=== PATIENT | male | born 1990 | race Caucasian/White ===

== ENCOUNTER 2016-10-27 13:15 | Emergency (ER) | payer MEDICAID, SELFPAY ==
[~2016-10-27] VITALS: Ht 180.3 cm; Wt 101.6 kg
[2016-10-27] MEDS ORDERED: LIDOCAINE 2% W/EPIN INJ 20ML **PRES FREE As Ordered ONE (13:42)
[2016-10-27] MEDS ORDERED: dexameTHASONE 20 MG/5 ML VIAL (J1100) IV ONE (14:45)
--- NOTE | 2016-10-27 15:19 | HPEPDOC ---
Medical History and Physical Date of Admission History and Physical PRIMARY CARE PROVIDER: ATTENDING: [place] CHIEF COMPLAINT: [SUSPECT PERITONSILLAR ABSCESS] HISTORY OF PRESENT ILLNESS: 26 year old male transported form outside ED with a suspected left peritonsillar abscess. The patient arrived by ambulance stable with no airway diffculties. He reported a sorethroat over the last week and was seen twice at a nearby ED. He reported that he was treated for sorethroat and a swollen right tonsil and prescribed amoxil. He improved, but then his left tonsil became swollen and painful later in the week and he returned to the ED, but was told his infection was probably viral and he was released. He then presented to the ED this morning with increased left tonsil pain and difficulty opening his mouth. I spoke with the PA at the ED who reported suspected left peritonsillar abscess and the patient was transported to [facility] ED for care. He was given one dose of unasyn at the outside ED. He was also imaged with non- contrast CT. The patient does report that he has been able to swallow fluids at home. He has no previous h/o peritonsillar abscess and has strep throat a few times as a child. PAST MEDICAL HISTORY: 1. [None]. 2. . 3. . 4. . PAST SURGICAL HISTORY: 1. [right knee surgery]. 2. . 3. . 4. . SOCIAL HISTORY: Marital status: . Resides in: Children: Employment: Tobacco use:[1ppd for 14 years] ETOH: [occasional] Illicit drug use: Tattoos done unprofessionally: . IV drug use: [none] Other relevant social factors: FAMILY HISTORY: Father: Mother: Siblings: Children: Hereditary Diseases: Unexpected deaths due to medical reasons: ALLERGIES: Please see below. REVIEW OF SYSTEMS: CONSTITUTIONAL: . HEENT: [see hpi]. CARDIOVASCULAR: [neg]. RESPIRATORY: [neg]. GASTROINTESTINAL: [neg]. GENITOURINARY: [neg]. SKIN: [neg]. MUSCULOSKELETAL: [neg]. NEUROLOGICAL: [neg]. PSYCHIATRIC: [neg]. ENDOCRINE: [neg]. HEMATOLOGIC/LYMPHATIC: [neg]. HOME MEDICATIONS: Please see below. PHYSICAL EXAMINATION: VITAL SIGNS: Temperature [9905], pulse [95], respiratory rate , blood pressure [ 126/89], pulse oximetry [98]% on room air. GENERAL APPEARANCE: [sitting in bed upright. appears uncomfortable. no stridor.]. HEENT: [+ tismus. the left tonsill is swollen and bulging medially with slight uvular deviation. The adjacent pillar is erythemetous and tender and firm. the neck is palpably soft with a tender level II lymph node.]. CARDIOVASCULAR: . LUNGS: . ABDOMEN: . MUSCULOSKELETAL: . EXTREMITIES: . NEUROLOGICAL: [cranial nerves grossly intact]. PSYCHIATRIC: . LABORATORY DATA: white count of 27.3 at outside ED with 83% neutrophils IMAGING: [outside non-con CT neck was viewed. No fluid collection was reported , but there is evidence of slight hypodensity near the superior pole of the tonsil which may represent either pus or phlegmon.] MICROBIOLOGY: Please see below. ASSESSMENT: [SUSPECTED LEFT PERITONSILLAR ABSCESS.]. . PLAN: [1. Patient was consented for left side incision and drainage of suspected peritonsillar abscess. Informed written consent was obtained from the patient. Procedure: The oral cavity was sprayed with cetacaine. 7ml of 2%lidocaine with dilute epinephrine was injected along anterior tonsillar pillar. During the course of injection a small amount of pus was released from an injection site. The peritonsillar space was then probed and aspirated with an 18gauge spinal needle. A questionable drop of pus was obtained. The peritonsillar space was then opened throught the pillar with 15 blade and the space probed with tonsil dissector. No further pus was obtained. A culture swab was probed in the peritonsillar space. This completed the procedure. The patient tolerated the procedure well.]. 2. Patient was given one dose of decadron 10mg IV for one dose. 3. Clindamycin 300mg po q6h for 14 days. 4. Percocet 5/325 1 tab q6h as needed for pain. 5. He was instructed to follow up at the ENT clinic first thing 08:00 on 29 October. Vital Signs Vital Signs Date Time Temp Pulse Resp B/P (MAP) Pulse Ox O2 Delivery O2 Flow Rate FiO2 10/27/16 13:35 99.5 97 18 126/89 (101) 10/27/16 13:25 98 Room Air Home Medications Scheduled Clindamycin Hcl (Clindamycin HCl) 150 Mg Cap, 450 MG PO Q6H Scheduled PRN Oxycodone/Acetaminophen (Percocet 5-325 mg) 1 Tab Tab, 1 TAB PO Q6H PRN for PAIN Allergies Coded Allergies: Morphine (Verified Allergy, Intermediate, body turns red all over , ) MYNOR WEINBERG MD Oct 27, 2016 15:19
[2016-10-27] MEDS ORDERED: CLIN1CAP5 PO (15:26)
[2016-10-27] MEDS ORDERED: PERC5TAB6 PO (15:27)
[2016-10-27] MEDS ORDERED: KETOROLAC 30 MG/ML VIAL (J1885) IV ONE (15:45)
[2016-10-27 16:05] VITALS: BP 132/89
[2016-10-27] MEDS ORDERED: METAL LOCK LOOP XX ONE (16:08)
[2016-10-27] MEDS ORDERED: CETACAINE SPRAY 20GM (FLOOR STOCK) As Ordered ONE (16:08)
== END 2016-10-27 16:17 | disposition home or self-care (01) ==
LOC: EDBD 13:15 → M ED 15:26
DX: J02.9 Acute pharyngitis, unspecified (principal); F17.210 Nicotine dependence, cigarettes, uncomplicated; Z88.5 Allergy status to narcotic agent
CPT/HCPCS: 87070; 87075; 87076; 87077; 87184; 99282; J1100; J1885

== ENCOUNTER 2018-08-22 02:09 | Inpatient (IN) | payer SELFPAY ==
[~2018-08-22] VITALS: Ht 180.3 cm; Wt 108.4 kg
[~2018-08-22 02:09] MED LIST: CLIN150C14 PO; PERC5TAB12 PO
[2018-08-22 03:30] VITALS: BP 138/77
[2018-08-22] MEDS ORDERED: NS 1,000 ML IV SCH (04:05)
[2018-08-22] MEDS ORDERED: ACETAMINOPHEN TAB 650MG DOSE (2X325MG) PO PRN (04:15)
[2018-08-22] MEDS: dexameTHASONE 4 MG/ML 1ML VIAL (J1100) IV SCH ×3 (05:05→18:06)
[2018-08-22 05:26] LABS: BASO % 0.2 % (0.0-1.0); EOS # 0.1 10^3/uL (0.0-0.50); EOS % 0.6 % (0.0-3.0); HEMATOCRIT 44.3 % (42.0-52.0); HEMOGLOBIN 15.3 g/dl (13.5-17.5); LYMPH # 1.8 10^3/uL (1.5-4.5); LYMPH % 14.7 % (24.0-44.0); MEAN CORPUSCULAR HEMOGLOBIN 31.6 pg (27.0-33.0); MEAN CORPUSCULAR HGB CONC 34.5 g/dl (32.0-36.5); MEAN CORPUSCULAR VOLUME 91.5 fl (80.0-96.0); MONO # 0.2 10^3/uL (0.0-0.8); MONO % 1.7 % (0.0-5.0); NEUTROPHILS # 10.2 10^3/uL (1.8-7.7); NEUTROPHILS % 82.4 % (36.0-66.0); PLATELET COUNT, AUTOMATED 253 10^3/uL (150-450); RED BLOOD COUNT 4.84 10^6/uL (4.30-6.10); WHITE BLOOD COUNT 12.4 10^3/uL (4.0-10.0)
[2018-08-22 05:43] LABS: BLOOD UREA NITROGEN 10 MG/DL (7-18); CALCIUM LEVEL 8.7 MG/DL (8.5-10.1); CARBON DIOXIDE LEVEL 25 MEQ/L (21-32); CHLORIDE LEVEL 105 MEQ/L (98-107); CREATININE FOR GFR 1.08 MG/DL (0.70-1.30); GLOMERULAR FILTRATION RATE > 60.0 (>60); GLUCOSE, FASTING 123 MG/DL (70-100); POTASSIUM SERUM 4.5 MEQ/L (3.5-5.1); SODIUM LEVEL 136 MEQ/L (136-145)
[2018-08-22 07:52] LABS: INR 0.97
[2018-08-22 08:00] VITALS: BP 131/69
[2018-08-22] MEDS: PIPERACILLIN/TAZOBACTAM SOD 3.375 GM in D5W MINI-BAG PLUS 50 ML IV SCH ×3 (08:27→20:48)
[2018-08-22] MEDS ORDERED: ENOXAPARIN 40 MG/0.4 ML SYRINGE (J1650) SC SCH (09:00)
[2018-08-22] MEDS ORDERED: PANTOPRAZOLE 40MG TAB (PROTONIX) PO SCH (09:00)
--- NOTE | 2018-08-22 10:41 | HPE ---
DATE OF ADMISSION: 08/22/2018 ATTENDING PHYSICIAN: Dr. Tipton CONSULTANTS: Dr. Gumaro Copeland, ears, nose, and throat (ENT) physician. CHIEF COMPLAINT: Right tonsillitis and abscess. HISTORY OF PRESENT ILLNESS: This patient is a 28-year-old white male without significant past medical history transferred from [facility] emergency department for the above complaints. The history was provided by himself. He states in the last two days he was sick and he initially started with nausea, vomiting, abdominal pain which started yesterday. However, this morning he woke up, he said he had some sore throat and not able to swallow and went to the [facility] emergency department. He was found to have tonsillitis as well as a possible absces. Due to lack of the ENT service, the [facility] emergency department contacted the regional sales representative ENT physician, Dr. Copeland who agreed to transfer the patient here. REVIEW OF SYSTEMS: No fever, no chills, no headache. No chest pain. Positive nausea, vomiting and epigastric pain. No diarrhea. All other systems reviewed were negative. PAST MEDICAL HISTORY: None. PAST SURGICAL HISTORY: Knee surgery. ALLERGIES: Allergic to MORPHINE. MEDICATIONS: No routine medications. FAMILY HISTORY: Family history is noncontributory. PHYSICAL EXAMINATION: VITAL SIGNS: Temperature is 98, heart rate is 90, respirations 16, blood pressure is 100/80, oxygen saturation is 98% on room air. GENERAL: He is awake, alert and oriented x3. He is not in acute distress. HEENT: Atraumatic. Pupils are equal, round, reactive to light. No jaundice. Extraocular muscles are intact. Ears, nose and throat are normal. Mouth: Mucosa is dry. He does have right sided tonsillitis and a possible abscess. NECK: No jugular venous distention (JVD). No bruits. LUNGS: Clear. No wheezing, no crackles. HEART: S1, S2, regular, no murmur. ABDOMEN: Soft, positive bowel sounds, nontender. LOWER EXTREMITIES: No edema in bilateral lower extremities. NEUROLOGIC: Nonfocal. SKIN: No rash. PSYCHIATRIC: No acute psychosis. Diagnostic lab studies in the outside hospital and a CBC as well as the CAT scan reviewed. Assessment and Plan: This is a 28-year-old male transfer from [facility] emergency department for possible right tonsillitis with possible abscess. Will continue intravenous (IV) Zosyn as well as IV dexamethasone. Dr. Copeland will consult. K[place]LIN
[2018-08-22 12:00] VITALS: BP 130/56
--- NOTE | 2018-08-22 15:15 | HPE ---
DATE OF ADMISSION: 08/22/2018 Yeyo Mcconnell is a 30-year-old gentleman who presents with a history of sore throat which has been going on for the last two days. It is mainly on the right side. The patient has a paratonsillar abscess in the past a number of years ago. The patient does get sore throats. He is unable to swallow well. He has no breathing problems. Otherwise, he is healthy. PHYSICAL EXAMINATION: Shows that there is a bit of paratonsillar swelling but not very much. He has some redness of the right tonsil bed. CT scan shows enlargement of the left tonsil. There is a question whether or not there is some loculation of fluid. IMPRESSION: The patient presents with a paratonsillar cellulitis. The patient is admitted and on IV antibiotics and steroids. I will followup with the patient. After this episode is over, he will require a tonsillectomy.
[2018-08-22 16:20] VITALS: BP 128/85
[2018-08-22 20:00] VITALS: BP 128/71
[2018-08-23] MEDS: dexameTHASONE 4 MG/ML 1ML VIAL (J1100) IV SCH ×3 (00:52→12:15)
[2018-08-23] MEDS: PIPERACILLIN/TAZOBACTAM SOD 3.375 GM in D5W MINI-BAG PLUS 50 ML IV SCH ×3 (01:44→14:13)
[2018-08-23 04:00] VITALS: BP 135/63
[2018-08-23 08:00] VITALS: BP 143/89
[2018-08-23 08:19] LABS: HEMATOCRIT 42.9 % (42.0-52.0); HEMOGLOBIN 14.8 g/dl (13.5-17.5); MEAN CORPUSCULAR HEMOGLOBIN 31.6 pg (27.0-33.0); MEAN CORPUSCULAR HGB CONC 34.5 g/dl (32.0-36.5); MEAN CORPUSCULAR VOLUME 91.5 fl (80.0-96.0); PLATELET COUNT, AUTOMATED 275 10^3/uL (150-450); RED BLOOD COUNT 4.69 10^6/uL (4.30-6.10); WHITE BLOOD COUNT 17.5 10^3/uL (4.0-10.0)
[2018-08-23 08:30] LABS: BLOOD UREA NITROGEN 11 MG/DL (7-18); CALCIUM LEVEL 8.7 MG/DL (8.5-10.1); CARBON DIOXIDE LEVEL 25 MEQ/L (21-32); CHLORIDE LEVEL 106 MEQ/L (98-107); GLOMERULAR FILTRATION RATE > 60.0 (>60); GLUCOSE, FASTING 119 MG/DL (70-100); POTASSIUM SERUM 4.6 MEQ/L (3.5-5.1); SODIUM LEVEL 140 MEQ/L (136-145)
[2018-08-23] MEDS ORDERED: CLIN150C14 PO (11:21)
--- NOTE | 2018-08-24 14:11 | DSES ---
DATE OF ADMISSION: 08/22/2018 DATE OF DISCHARGE: 08/23/2018 DISCHARGE DIAGNOSIS: Peritonsillar cellulitis. SECONDARY DIAGNOSIS: Poor dentition. HOSPITAL COURSE: The patient is a 28-year-old white male who presented to an outside and was thought to have possibly a peritonsillar abscess and was transferred to our facility for ENT evaluation. He was seen by Dr. Copeland on 08/22/2018, who suggested Decadron and antibiotics over the phone. When he did evaluate the patient, he felt that there was not significant fluid collection of drainable fluid collection and felt that it was more peritonsillar cellulitis. He did say that the patient required a tonsillectomy. The patient declined. completed by Dr. Copeland and has a provider in [place] who he has already called and arranged a followup appointment with prior to discharge. He did receive Zosyn and Decadron while hospitalized. At this time, his pain has subsided. His swelling has decreased markedly. He has never had any compromise in his airway. He has full range of motion at the mouth and had done significantly better. I have spoken with Dr. Copeland this morning. We both agree that at this time he is medically stable for discharge home without further steroids. SUBJECTIVE: This morning the patient tells me he feels well and has no complaints. OBJECTIVE: VITAL SIGNS: Temperature 97.4, pulse 77, respiratory rate 18, blood pressure 135/63, oxygen saturation 99% on room air. GENERAL: He is young, man. He is accompanied by his significant other. He does not appear to be in any distress. HEENT: Cranial nerves II-XII are grossly intact. There is no tenderness to palpation along the right mandible. CARDIOVASCULAR EXAM: S1, S2. Regular. RESPIRATORY EXAM: Clear. ABDOMINAL EXAM: Benign. EXTREMITIES: No clubbing, cyanosis or edema. Numerous tattoos. LABORATORY STUDIES: WBC 17.5, hemoglobin 14.8, platelet count 275. Chemistry panel: Sodium 140, potassium 4.6, chloride 106, bicarbonate 25, BUN 11, creatinine 0.9. ASSESSMENT AND PLAN: This is a 28-year-old man with peritonsillar cellulitis. PROBLEM: Peritonsillar cellulitis. At this time, he is being discharged home on clindamycin 150 mg four times a day for 10 days. He is to followup with his primary care physician within 7 days. Followup with ENT as needed. Followup with his oral surgeon in [place] as scheduled. His activity and diet are as tolerated. He is to return to the emergency room (ER) if symptoms worsen. Medications at the time of discharge clindamycin 150 mg by mouth four times a day for 10 days. Greater than 30 minutes was spent coordinating care and organizing safe disposition.
== END 2018-08-23 16:15 | disposition home or self-care (01) | DRG 113 ==
LOC: M PCU 03:25 → M PED 16:10
PROVIDERS: ADMIT Hospitalist; ATTEND Internal Medicine
DX: J36 Peritonsillar abscess (principal); K02.9 Dental caries, unspecified

== ENCOUNTER 2022-01-20 16:50 | Emergency (ER) | payer OTHER, SELFPAY ==
[~2022-01-20] VITALS: Ht 180.3 cm; Wt 113.6 kg
[2022-01-20 16:50] VITALS: BP 132/88
[~2022-01-20 16:50] MED LIST changes: -CLIN150C14 PO; +CLIN150C17 PO
[2022-01-20] MEDS ORDERED: CEPH500C PO (18:32)
== END 2022-01-20 18:54 | disposition home or self-care (01) ==
LOC: M ED 16:50
DX: S61.012A Laceration without foreign body of left thumb without damage to nail, initial encounter (principal); F17.200 Nicotine dependence, unspecified, uncomplicated; Y92.9 Unspecified place or not applicable; Y93.9 Activity, unspecified; Y99.0 Civilian activity done for income or pay